=== PATIENT | male | born 1990 | race Caucasian/White ===

== ENCOUNTER → 2016-08-19 | Outpatient (CLI) | payer OTHER ==
--- NOTE | 2016-08-19 17:02 | DX ---
Cervical Spine, 6 Views History: Pain. Snowboarding injury August 14, 2016. Increasing left radiculopathy and pain. Findings: Alignment is anatomic. Disk spaces are well maintained. There is no prevertebral soft tissu e swelling. No fracture is identified. Impression: Normal. No posttraumatic abnormality identified.
== END ==
LOC: BRMIMAGING 15:27
PROVIDERS: ATTEND Physician Assistant Medical
DX: M54.2 Cervicalgia (principal)
CPT/HCPCS: 72050-PO